=== PATIENT | male | born 1960 | race Caucasian/White ===

== ENCOUNTER 2016-04-16 07:01 | Day surgery (SDC) | payer BC ==
[2016-04-15 14:01] VITALS: BMI 33.6
[2016-04-16] MEDS ORDERED: LIDOCAINE HCL/PF 1% SDV 5ML VIAL ONE (07:31)
[2016-04-16] MEDS ORDERED: SUCCINYLCHOLINE CHLORIDE 200 MG/10 ML VIAL ONE (07:32)
[2016-04-16] MEDS ORDERED: PROPOFOL 20 ML ONE ×4 (07:32)
[2016-04-16] MEDS ORDERED: ePHEDrine SULFATE 50 MG/1 ML AMPULE ONE (07:32)
[2016-04-16] MEDS ORDERED: PHENYLEPHRINE HCL 10 MG/1 ML SINGLE DOSE VIAL ONE (07:32)
[2016-04-16 09:08] VITALS: TEMP 97.5
[2016-04-16 10:03] VITALS: BP 112/66; PULSE 64
--- NOTE | 2016-04-19 12:25 | PATH ---
Surgical Pathology Report Patient Name: ALEXANDREA BOND [facility]. Rec. #: [id number] /Age/Gender: 1960 (Age: 55) / M Account: [id number] Location: [facility]-ENDOSCOPY Taken: 04/16/2016 Received: 04/16/2016 Reported: 04/19/2016 Physicians: Bettye Bowling M.D. Specimen(s) Received A: BX 2ND PORTION DUODENUM & BULB B: BX POLYP GASTRIC FUNDUS C: BX GASTRIC ANTRUM D: BX GE JUNCTION E: BX MID ESOPHAGUS F: POLYPS SIGMOID G: BX DISTAL TRANSVERSE COLON H: BX RECTAL POLYP Clinical History Acid reflux, family history of colon cancer GERD, hiatal hernia, gastric fundic polyp, gastritis, colon polyps, Schatzki's ring Final Diagnosis A. DUODENUM, SECOND PORTION AND BULB, BIOPSY: DUODENAL MUCOSA WITH CHRONIC INFLAMMATION AND ASTRID'S GLANDS HYPERPLASIA. NO HISTOLOGIC EVIDENCE OF GLUTEN SENSITIVE ENTEROPATHY (CELIAC DISEASE). B. STOMACH, FUNDUS, POLYP, BIOPSY: GASTRIC OXYNTIC MUCOSA WITH FUNDIC GLAND POLYP AND MODERATE CHRONIC GASTRITIS. IMMUNOSTAIN FOR H. PYLORI IS NEGATIVE FOR ORGANISMS. C. STOMACH, ANTRUM, BIOPSY: GASTRIC ANTRAL MUCOSA WITH MODERATE CHRONIC GASTRITIS AND MILD REACTIVE GASTROPATHY. IMMUNOSTAIN FOR H. PYLORI IS NEGATIVE FOR ORGANISMS. D. GE JUNCTION, BIOPSY: SQUAMOUS EPITHELIUM WITH CHRONIC INFLAMMATION AND REFLUX TYPE CHANGES. NO COLUMNAR EPITHELIUM PRESENT (NO INTESTINAL METAPLASIA/AQUINO'S ESOPHAGUS IDENTIFIED). E. ESOPHAGUS, MID, BIOPSY: SQUAMOUS EPITHELIUM WITH CHRONIC INFLAMMATION AND MARKED REFLUX TYPE CHANGES. NO EVIDENCE OF EOSINOPHILIC ESOPHAGITIS. F. COLON, SIGMOID, POLYPS x4, POLYPECTOMY: FRAGMENTS OF HYPERPLASTIC TYPE POLYPS WITH FOCAL FEATURES OF SESSILE SERRATED ADENOMA (LARGER FRAGMENT) . G. COLON, DISTAL TRANSVERSE POLYP, BIOPSY: POLYPOID FRAGMENT OF COLONIC MUCOSA WITH PROMINENT REACTIVE LYMPHOID AGGREGATE AND SURFACE HYPERPLASTIC CHANGE. H. RECTUM, POLYP, BIOPSY: FRAGMENTS OF HYPERPLASTIC POLYP. Electronically Signed Lloyd Barclay M.D. Gross Description A. Received in formalin, labeled "biopsy second portion of duodenum and duodenal bulb" are 3 gardiner, irregular portions of soft tissue ranging from 0.3-0.6 cm. in greatest dimension. The specimens are submitted in toto in one cassette. B. Received in formalin, labeled "biopsy polyp gastric fundus" are 2 gardiner, irregular portions of soft tissue averaging 0.2 cm in greatest dimension. The specimens are submitted in toto in one cassette. C. Received in formalin, labeled "biopsy gastric antrum" is a gardiner, irregular portion of soft tissue measuring 0.2 cm in greatest dimension. The specimen is submitted in toto in one cassette. D. Received in formalin, labeled "biopsy GE junction" are 3 gardiner, irregular portions of soft tissue ranging from 0.3-0.4 cm in greatest dimension. The specimens are submitted in toto in one cassette. E. Received in formalin, labeled "biopsy mid esophagus" are 2 gardiner, irregular portions of soft tissue measuring 0.3 and 0.5 cm in greatest dimension. The specimens are submitted in toto in one cassette. F. Received in formalin, labeled "polyps sigmoid" are 3 gardiner, polypoid portions of soft tissue ranging from 0.3-0.6 cm in greatest dimension. The specimens are submitted in toto in one cassette. G. Received in formalin, labeled "biopsy distal transverse colon" are 2 gardiner, irregular portions of soft tissue measuring 0.1 and 0.4 cm in greatest dimension. The specimens are submitted in toto in one cassette. H. Received in formalin, labeled "biopsy rectal polyp" are 2 gardiner, irregular portions of soft tissue measuring 0.1 and 0.3 cm in greatest dimension. The specimens are submitted in toto in one cassette. 04/16/201604/16/2016
== END 2016-04-16 10:10 | disposition home or self-care (01) ==
LOC: JASU-ENDO 07:01
PROVIDERS: ATTEND Internal Medicine Gastroenterology
PROC: 0DBL8ZX Excision of Transverse Colon, Via Natural or Artificial Opening Endoscopic, Diagnostic (ICD-10-PCS; 2016-04-16)
PROC: 0DBP8ZX Excision of Rectum, Via Natural or Artificial Opening Endoscopic, Diagnostic (ICD-10-PCS; 2016-04-16)
PROC: 0DB68ZX Excision of Stomach, Via Natural or Artificial Opening Endoscopic, Diagnostic (ICD-10-PCS; 2016-04-16)
PROC: 0DB18ZX Excision of Upper Esophagus, Via Natural or Artificial Opening Endoscopic, Diagnostic (ICD-10-PCS; 2016-04-16)
PROC: 0DB28ZX Excision of Middle Esophagus, Via Natural or Artificial Opening Endoscopic, Diagnostic (ICD-10-PCS; 2016-04-16)
PROC: 0DB38ZX Excision of Lower Esophagus, Via Natural or Artificial Opening Endoscopic, Diagnostic (ICD-10-PCS; 2016-04-16)
PROC: 0DB98ZX Excision of Duodenum, Via Natural or Artificial Opening Endoscopic, Diagnostic (ICD-10-PCS; 2016-04-16)
PROC: 0DBN8ZX Excision of Sigmoid Colon, Via Natural or Artificial Opening Endoscopic, Diagnostic (ICD-10-PCS; principal; 2016-04-16 08:00)
DX: Z12.11 Encounter for screening for malignant neoplasm of colon (principal); Z80.0 Family history of malignant neoplasm of digestive organs; D12.5 Benign neoplasm of sigmoid colon; D12.3 Benign neoplasm of transverse colon; K62.1 Rectal polyp; K64.8 Other hemorrhoids; K21.9 Gastro-esophageal reflux disease without esophagitis; K44.9 Diaphragmatic hernia without obstruction or gangrene; K22.2 Esophageal obstruction; K22.10 Ulcer of esophagus without bleeding; K31.7 Polyp of stomach and duodenum
CPT/HCPCS: 88305-TC; 88342-TC

== ENCOUNTER 2022-02-15 17:33 | Observation (INO) | payer BC, OTHER ==
[2022-02-15 19:08] VITALS: BMI 33.1
[2022-02-15] MEDS ORDERED: methylPREDNISolone NA SUCC 125 MG/2 ML VIAL ONE (21:16)
[2022-02-15] MEDS ORDERED: methylPREDNISolone NA SUCC 125 MG/2 ML VIAL IVPB ONE (21:40)
[2022-02-15 22:08] LABS: BASO % 0.7 % (0-2.0); EOS % 2.2 % (0-4.5); HEMATOCRIT 51.8 % (35.4-49); HEMOGLOBIN 17.7 GM/dL (11.7-16.9); LYMPH % 29.5 % (8-40); MCH 32.2 pg (25.7-33.7); MCHC 34.1 g/dl (32.0-35.9); MEAN CELL VOLUME 94.2 fl (80-96); MEAN PLT VOLUME 7.8 fl (7.5-11.1); MONO % 10.4 % (3.8-10.2); NEUT % 57.2 % (42.8-82.8); PLATELET COUNT 273 10^3/uL (134-434); RDW 14.5 % (11.9-15.9)
[2022-02-15 22:22] LABS: ALBUMIN 2.6 g/dl (3.4-5.0); BLOOD UREA NITROGEN 9.1 mg/dL (7-18); CALCIUM 8.4 mg/dL (8.5-10.1)
[2022-02-15 22:25] LABS: CREATININE 0.9 mg/dL (0.55-1.3)
[2022-02-15 22:27] LABS: BILIRUBIN,TOTAL 0.7 mg/dL (0.2-1); TOT PROT 6.7 g/dl (6.4-8.2)
[2022-02-16] MEDS: APIXABAN 5 MG TABLET PO SCH ×2 (01:45→09:35)
[2022-02-16 07:20] VITALS: TEMP 98.2
[2022-02-16 08:19] LABS: BASO % 0.2 % (0-2.0); HEMATOCRIT 51.8 % (35.4-49); HEMOGLOBIN 17.9 GM/dL (11.7-16.9); LYMPH % 10.2 % (8-40); MCH 32.4 pg (25.7-33.7); MCHC 34.6 g/dl (32.0-35.9); MEAN CELL VOLUME 93.7 fl (80-96); MEAN PLT VOLUME 7.8 fl (7.5-11.1); MONO % 0.7 % (3.8-10.2); NEUT % 88.9 % (42.8-82.8); PLATELET COUNT 285 10^3/uL (134-434); RBC 5.53 M/mm3 (4.00-5.60); RDW 13.8 % (11.9-15.9); WHITE BLOOD COUNT 7.8 K/mm3 (4.0-10.0)
[2022-02-16 08:44] LABS: CALCIUM 8.8 mg/dL (8.5-10.1)
[2022-02-16 08:45] LABS: ALBUMIN 2.6 g/dl (3.4-5.0); BLOOD UREA NITROGEN 12.3 mg/dL (7-18); MAGNESIUM 1.8 mg/dL (1.8-2.4)
[2022-02-16 08:48] LABS: CREATININE 0.9 mg/dL (0.55-1.3); PHOSPHOROUS 3.7 mg/dL (2.5-4.9)
[2022-02-16 08:50] LABS: BILIRUBIN,TOTAL 1.1 mg/dL (0.2-1); TOT PROT 6.8 g/dl (6.4-8.2)
[2022-02-16] MEDS ORDERED: CARVEDILOL 12.5 MG TABLET (FP) ONE (09:29)
[2022-02-16] MEDS ORDERED: APIXABAN 5 MG TABLET ONE (09:29)
[2022-02-16] MEDS ORDERED: predniSONE 20 MG TABLET (UD) ONE (09:29)
[2022-02-16] MEDS ORDERED: amLODIPine BESYLATE 5 MG TABLET (FP) ONE (09:29)
[2022-02-16] MEDS ORDERED: amLODIPine BESYLATE 5 MG TABLET (FP) PO SCH (10:00)
[2022-02-16] MEDS ORDERED: CARVEDILOL 12.5 MG TABLET (FP) PO SCH (10:00)
[2022-02-16] MEDS ORDERED: predniSONE 20 MG TABLET (UD) PO SCH (10:00)
[2022-02-16 11:02] VITALS: BP 134/84; PULSE 98; RESP 16
[2022-02-16] MEDS ORDERED: ATORVASTATIN CA 80 MG TABLET (FP) PO SCH (22:00)
== END 2022-02-16 11:03 | disposition home or self-care (01) ==
LOC: JER 17:33 → JERBED 22:34
PROVIDERS: ADMIT Internal Medicine; ATTEND Nurse Practitioner Family
PROC: 3E033GC Introduction of Other Therapeutic Substance into Peripheral Vein, Percutaneous Approach (ICD-10-PCS; principal; 2022-02-15)
DX: T78.3XXA Angioneurotic edema, initial encounter (principal); Z88.8 Allergy status to other drugs, medicaments and biological substances; E66.8 Other obesity; Z68.33 Body mass index [BMI] 33.0-33.9, adult; Z87.891 Personal history of nicotine dependence; I10 Essential (primary) hypertension
CPT/HCPCS: 36415; 71045-TC-FY; 80053; 83735; 84100; 85025; 93005; 93010; 96374; 96375; 99285-25; C9803-CS; G0378; U0003; U0005

== ENCOUNTER 2023-03-25 04:25 | Day surgery (SDC) | payer OTHER ==
[2023-03-22 16:09] VITALS: BMI 35.1
[2023-03-25] MEDS ORDERED: LIDOCAINE VISCOUS 2% ORAL/TOP 15 ML UNIT-DOSE CUP ONE (08:55)
[2023-03-25] MEDS ORDERED: FENTANYL CITRATE/PF 50 MCG/ML VIAL ONE (08:55)
[2023-03-25] MEDS ORDERED: MIDAZOLAM HCL 2 MG/2 ML SINGLE DOSE VIAL ONE (08:55)
[2023-03-25 10:15] VITALS: RESP 20
[2023-03-25 10:16] VITALS: BP 138/99; PULSE 68; TEMP 97.9
== END 2023-03-25 10:45 | disposition home or self-care (01) ==
LOC: JASU-ENDO 04:25
PROVIDERS: ATTEND Internal Medicine Gastroenterology
PROC: 0DBN8ZX Excision of Sigmoid Colon, Via Natural or Artificial Opening Endoscopic, Diagnostic (ICD-10-PCS; 2023-03-25)
PROC: 0DJ08ZZ Inspection of Upper Intestinal Tract, Via Natural or Artificial Opening Endoscopic (ICD-10-PCS; 2023-03-25)
PROC: 0DBL8ZX Excision of Transverse Colon, Via Natural or Artificial Opening Endoscopic, Diagnostic (ICD-10-PCS; principal; 2023-03-25 09:00)
DX: Z12.11 Encounter for screening for malignant neoplasm of colon (principal); D12.3 Benign neoplasm of transverse colon; K63.5 Polyp of colon; K64.8 Other hemorrhoids; K64.4 Residual hemorrhoidal skin tags; K21.00 Gastro-esophageal reflux disease with esophagitis, without bleeding; Z86.010 Personal history of colon polyps
CPT/HCPCS: 88305-TC